=== PATIENT | male | born 1960 ===

== ENCOUNTER 2022-03-05 06:06 | Day surgery (SDC) | payer OTHER ==
[~2022-03-05] VITALS: Ht 172.7 cm; Wt 66.3 kg
--- NOTE | 2022-03-05 09:18 | NUR ---
03/05/22 0918 CRISTINA MANZO PT SNORING LOUDLY IN PACU-O2 SATS97% ON RA
--- NOTE | 2022-03-05 10:28 | NUR ---
03/05/22 1028 CRISTINA MANZO 2ND BAG OF FLUIDS OUT OF OR HANGING PER STAFF.
== END 2022-03-05 10:40 | disposition home or self-care (01) ==
LOC: ORSCSDS 06:06
PROVIDERS: Surgery
PROC: 0YU50JZ Supplement Right Inguinal Region with Synthetic Substitute, Open Approach (ICD-10-PCS; principal; 2022-03-05 07:30)
DX: K40.91 Unilateral inguinal hernia, without obstruction or gangrene, recurrent (principal); B19.20 Unspecified viral hepatitis C without hepatic coma; K74.60 Unspecified cirrhosis of liver; D69.6 Thrombocytopenia, unspecified; F17.220 Nicotine dependence, chewing tobacco, uncomplicated
CPT/HCPCS: C1781; J0690; J1100; J1885; J2250; J2405; J2704; J3010; J7120